=== PATIENT | female | born 1995 | race Caucasian/White ===

== ENCOUNTER 2017-01-14 18:09 | Inpatient (IN) | payer OTHER ==
[~2017-01-14] VITALS: Ht 167.6 cm; Wt 80.4 kg
[~2017-01-14 18:09] MED LIST: ARIP10TA14 PO; BENZ1TAB10 PO; BUPR100SR PO; CLON.5 PO; METH20TA PO; QUET100T PO; SERT50TA12 PO; [UNRECOGNIZED DRUG - CODE] PO
[2017-01-14] MEDS ORDERED: QUET200T PO (19:37)
[2017-01-14] MEDS ORDERED: QUET300T2 PO (19:37)
[2017-01-14] MEDS ORDERED: ATEN25 PO (19:37)
[2017-01-14] MEDS ORDERED: CHLO100T24 PO (19:37)
[2017-01-14] MEDS ORDERED: LITH600 PO (19:37)
[2017-01-14] MEDS ORDERED: LITH300C3 PO (19:37)
[2017-01-14 19:39] VITALS: BP 108/84
[2017-01-14] MEDS ORDERED: PNEUMOCOCCAL VACCINE POLYVALENT 0.5 ML VIAL [PPSV23] IM ONE (20:45)
[2017-01-14] MEDS ORDERED: INFLUENZA VIRUS VACCINE QVS 2016-17 (3YR+)/PF 60 MCG/0.5 ML SYRINGE IM ONE (20:45)
[2017-01-14 21:41] VITALS: BP 129/79
[2017-01-15 00:24] VITALS: BP 132/85
[2017-01-15] MEDS ORDERED: ACETAMINOPHEN 325 MG TABLET PO PRN (06:00)
[2017-01-15 08:30] VITALS: BP 138/88
[2017-01-15 08:39] LABS: BASOPHILS % (AUTO) 0.2 % (0.0-2.0); EOSINOPHILS % (AUTO) 1.5 % (1.0-6.0); HEMOGLOBIN 13.7 g/dL (12.0-16.0); LYMPHOCYTES # (AUTO) 3.6 K/uL (1.0-4.8); LYMPHOCYTES % (AUTO) 20.4 % (22.0-44.0); MEAN CORPUSCULAR HEMOGLOBIN 27.9 pg (26.0-34.0); MEAN CORPUSCULAR HGB CONC 32.6 G/dL (31.0-37.0); MEAN CORPUSCULAR VOLUME 86 fL (80-100); MONOCYTES # (AUTO) 0.9 K/uL (0.1-1.0); MONOCYTES % (AUTO) 4.9 % (2.0-9.0); NEUTROPHILS # (AUTO) 12.9 K/uL (1.8-7.7); PLATELET COUNT (AUTO) 381 K/uL (150-450); RED CELL DISTRIBUTION WIDTH 14.1 % (11.5-14.5); WHITE BLOOD COUNT (AUTO) 17.7 K/uL (4.5-11.0)
[2017-01-15] MEDS: IBUPROFEN 400 MG TABLET PO PRN (08:54)
[2017-01-15 09:04] LABS: LITHIUM 0.24 mmol/L (0.60-1.20)
[2017-01-15 09:22] LABS: ALANINE AMINOTRANSFERASE 64 U/L (12-78); ALBUMIN 4.2 g/dL (3.4-5.0); ANION GAP 12 mmol/L (8-16); ASPARTATE AMINOTRANSFERASE 25 U/L (15-37); BILIRUBIN,TOTAL 0.7 mg/dL (0.1-1.0); CALCIUM, TOTAL 9.2 mg/dL (8.8-10.5); CARBON DIOXIDE 25 mmol/L (22-29); CHLORIDE 103 mmol/L (98-107); CHOL/HDL RATIO 2.4 (3.9-5.7); CREATININE 1.12 mg/dL (0.60-1.30); GLOMERULAR FILTR. RATE CALC > 60 mL/min (>60); POTASSIUM 3.6 mmol/L (3.5-5.1); SODIUM SERUM 140 mmol/L (136-145); TOTAL PROTEIN, SERUM 7.6 g/dL (6.4-8.2); UREA NITROGEN, BLOOD 12 mg/dL (7-18)
[2017-01-15] MEDS: NICOTINE 21 MG/24 HOUR PATCH TD SCH (09:39)
[2017-01-15] MEDS ORDERED: ONDANSETRON HCL 4 MG TABLET PO PRN (10:00)
[2017-01-15] MEDS: LORazepam 2 MG TABLET PO PRN ×2 (12:03→20:35)
[2017-01-15] MEDS: ATENOLOL 25 MG TABLET PO SCH ×2 (14:11→17:11)
[2017-01-15 16:32] VITALS: BP 124/90
[2017-01-15] MEDS: OLANZapine 5 MG TABLET PO SCH (21:11)
[2017-01-15] MEDS: ZOLPIDEM TARTRATE 10 MG TABLET PO PRN (22:48)
[2017-01-15 22:49] VITALS: BP 114/92
[2017-01-16 06:00] VITALS: BP 112/72
[2017-01-16 08:15] VITALS: BP 123/62
[2017-01-16] MEDS: NICOTINE 21 MG/24 HOUR PATCH TD SCH ×2 (09:40→10:17)
[2017-01-16] MEDS: ATENOLOL 25 MG TABLET PO SCH ×2 (10:17→17:00)
[2017-01-16] MEDS: FLUoxetine HCL 20 MG CAPSULE PO SCH (10:17)
[2017-01-16] MEDS: LORazepam 2 MG TABLET PO PRN (10:18)
[2017-01-16 10:32] LABS: GLUCOSE, URINE (UA) NEGATIVE (NEGATIVE); KETONES,URINE NEGATIVE (NEGATIVE); LEUKOCYTE ESTERASE ,URINE NEGATIVE (NEGATIVE); OCCULT BLOOD,URINE NEGATIVE (NEGATIVE); PROTEIN,URINE TRACE (NEGATIVE)
[2017-01-16 10:41] LABS: ADD UA MICROSCOPIC NO; APPEARANCE,URINE HAZY (CLEAR)
[2017-01-16] MEDS ORDERED: MAG HYDROX/AL HYDROX/SIMETH 30 ML SUSP UDCUP PO PRN (14:30)
[2017-01-16 16:06] VITALS: BP 106/73
[2017-01-16] MEDS: OLANZapine 5 MG TABLET PO SCH (20:23)
[2017-01-16] MEDS: ZOLPIDEM TARTRATE 10 MG TABLET PO PRN (21:02)
[2017-01-17 00:05] VITALS: BP 105/71
[2017-01-17 08:21] VITALS: BP 115/72
[2017-01-17] MEDS: NICOTINE 21 MG/24 HOUR PATCH TD SCH (09:00)
[2017-01-17] MEDS: ATENOLOL 25 MG TABLET PO SCH ×2 (09:25→16:30)
[2017-01-17] MEDS: FLUoxetine HCL 20 MG CAPSULE PO SCH (09:25)
[2017-01-17] MEDS: IBUPROFEN 400 MG TABLET PO PRN (12:56)
[2017-01-17 16:15] VITALS: BP 115/67
[2017-01-17] MEDS: OLANZapine 5 MG TABLET PO SCH (20:42)
[2017-01-17] MEDS: ZOLPIDEM TARTRATE 10 MG TABLET PO PRN (22:03)
[2017-01-18 01:42] VITALS: BP 117/71
[2017-01-18 07:55] LABS: BASOPHILS # (AUTO) 0.05 K/uL (0.00-0.20); BASOPHILS % (AUTO) 0.4 % (0.0-2.0); EOSINOPHILS % (AUTO) 2.86 % (1.0-6.0); HEMATOCRIT 38.6 % (36-46); HEMOGLOBIN 12.8 g/dL (12.0-16.0); LYMPHOCYTES # (AUTO) 3.4 K/uL (1.0-4.8); LYMPHOCYTES % (AUTO) 23.8 % (22.0-44.0); MEAN CORPUSCULAR HEMOGLOBIN 28.2 pg (26.0-34.0); MEAN CORPUSCULAR HGB CONC 33.2 G/dL (31.0-37.0); MEAN CORPUSCULAR VOLUME 85 fL (80-100); MONOCYTES # (AUTO) 0.8 K/uL (0.1-1.0); MONOCYTES % (AUTO) 5.5 % (2.0-9.0); NEUTROPHILS # (AUTO) 9.6 K/uL (1.8-7.7); NEUTROPHILS % (AUTO) 67.5 % (40.0-70.0); PLATELET COUNT (AUTO) 362 K/uL (150-450); RED BLOOD CELL COUNT(AUTO) 4.54 MIL/uL (4.00-5.20); RED CELL DISTRIBUTION WIDTH 14.1 % (11.5-14.5); WHITE BLOOD COUNT (AUTO) 14.2 K/uL (4.5-11.0)
[2017-01-18 08:10] LABS: ANION GAP 9 mmol/L (8-16); CALCIUM, TOTAL 8.6 mg/dL (8.8-10.5); CARBON DIOXIDE 28 mmol/L (22-29); CHLORIDE 107 mmol/L (98-107); CREATININE 0.97 mg/dL (0.60-1.30); GLOMERULAR FILTR. RATE CALC > 60 mL/min (>60); POTASSIUM 3.7 mmol/L (3.5-5.1); SODIUM SERUM 144 mmol/L (136-145); UREA NITROGEN, BLOOD 12 mg/dL (7-18)
[2017-01-18] MEDS: IBUPROFEN 400 MG TABLET PO PRN (08:26)
[2017-01-18 08:27] VITALS: BP 127/76
[2017-01-18] MEDS: ATENOLOL 25 MG TABLET PO SCH ×2 (08:44→16:44)
[2017-01-18] MEDS: NICOTINE 21 MG/24 HOUR PATCH TD SCH (08:44)
[2017-01-18] MEDS: FLUoxetine HCL 20 MG CAPSULE PO SCH (08:44)
[2017-01-18 16:12] VITALS: BP 120/69
[2017-01-18] MEDS: LORazepam 2 MG TABLET PO PRN (20:10)
[2017-01-18] MEDS: OLANZapine 5 MG TABLET PO SCH (20:44)
[2017-01-19 03:26] VITALS: BP 106/60
[2017-01-19 08:20] VITALS: BP 115/83
[2017-01-19] MEDS: NICOTINE 21 MG/24 HOUR PATCH TD SCH (08:36)
[2017-01-19] MEDS: FLUoxetine HCL 20 MG CAPSULE PO SCH (08:36)
[2017-01-19] MEDS: ATENOLOL 25 MG TABLET PO SCH ×2 (08:36→16:58)
[2017-01-19 16:03] VITALS: BP 112/60
[2017-01-19] MEDS: IBUPROFEN 400 MG TABLET PO PRN (16:37)
[2017-01-19] MEDS: LORazepam 2 MG TABLET PO PRN (19:31)
[2017-01-19] MEDS: OLANZapine 5 MG TABLET PO SCH (20:37)
[2017-01-20 00:06] VITALS: BP 101/61
[2017-01-20 09:00] VITALS: BP 124/69
[2017-01-20] MEDS: FLUoxetine HCL 20 MG CAPSULE PO SCH (09:12)
[2017-01-20] MEDS: ATENOLOL 25 MG TABLET PO SCH ×2 (09:12→16:57)
[2017-01-20] MEDS: NICOTINE 21 MG/24 HOUR PATCH TD SCH (09:12)
[2017-01-20 14:26] VITALS: BP 112/62
[2017-01-20] MEDS: IBUPROFEN 400 MG TABLET PO PRN (14:26)
[2017-01-20 16:04] VITALS: BP 105/59
[2017-01-20 16:57] VITALS: BP 120/66
[2017-01-20] MEDS: OLANZapine 5 MG TABLET PO SCH (20:32)
[2017-01-20] MEDS: ZOLPIDEM TARTRATE 10 MG TABLET PO PRN (21:20)
[2017-01-21 01:05] VITALS: BP 92/54
[2017-01-21 01:31] VITALS: BP 92/55
[2017-01-21 08:30] VITALS: BP 127/55
[2017-01-21 09:25] VITALS: BP 118/75
[2017-01-21] MEDS: LORazepam 2 MG TABLET PO PRN (09:30)
[2017-01-21] MEDS: FLUoxetine HCL 20 MG CAPSULE PO SCH (09:30)
[2017-01-21] MEDS: NICOTINE 21 MG/24 HOUR PATCH TD SCH (09:30)
[2017-01-21] MEDS: ATENOLOL 25 MG TABLET PO SCH ×2 (09:30→16:42)
[2017-01-21 16:25] VITALS: BP 125/69
[2017-01-21] MEDS: OLANZapine 5 MG TABLET PO SCH (20:42)
[2017-01-22 05:34] VITALS: BP 105/77
[2017-01-22 08:00] VITALS: BP 110/71
[2017-01-22 08:08] LABS: BASOPHILS # (AUTO) 0.05 K/uL (0.00-0.20); BASOPHILS % (AUTO) 0.4 % (0.0-2.0); EOSINOPHILS # (AUTO) 0.28 K/uL (0.00-0.70); HEMATOCRIT 42.4 % (36-46); HEMOGLOBIN 14.2 g/dL (12.0-16.0); LYMPHOCYTES # (AUTO) 4.8 K/uL (1.0-4.8); LYMPHOCYTES % (AUTO) 32.7 % (22.0-44.0); MEAN CORPUSCULAR HEMOGLOBIN 28.3 pg (26.0-34.0); MEAN CORPUSCULAR HGB CONC 33.4 G/dL (31.0-37.0); MEAN CORPUSCULAR VOLUME 85 fL (80-100); MONOCYTES # (AUTO) 1.1 K/uL (0.1-1.0); MONOCYTES % (AUTO) 7.5 % (2.0-9.0); NEUTROPHILS # (AUTO) 8.5 K/uL (1.8-7.7); NEUTROPHILS % (AUTO) 57.5 % (40.0-70.0); PLATELET COUNT (AUTO) 371 K/uL (150-450); RED BLOOD CELL COUNT(AUTO) 5.01 MIL/uL (4.00-5.20); RED CELL DISTRIBUTION WIDTH 14.9 % (11.5-14.5); WHITE BLOOD COUNT (AUTO) 14.7 K/uL (4.5-11.0)
[2017-01-22] MEDS ORDERED: FLUO-191 PO (08:15)
[2017-01-22] MEDS ORDERED: OLAN5TAB2 PO (08:30)
[2017-01-22] MEDS: NICOTINE 21 MG/24 HOUR PATCH TD SCH (09:00)
[2017-01-22] MEDS: FLUoxetine HCL 20 MG CAPSULE PO SCH (09:40)
[2017-01-22] MEDS: ATENOLOL 25 MG TABLET PO SCH (09:40)
== END 2017-01-22 09:50 | disposition home or self-care (01) | DRG 885 ==
LOC: B2S 21:11 → EDSTATUS 21:12 → B2X 01-15 15:53 → B2S 01-21 10:24
PROVIDERS: ADMIT Psychiatry & Neurology Psychiatry; ATTEND Psychiatry & Neurology Child & Adolescent Psychiatry
DX: F25.0 Schizoaffective disorder, bipolar type (principal); R45.851 Suicidal ideations; D72.829 Elevated white blood cell count, unspecified; F12.10 Cannabis abuse, uncomplicated; I10 Essential (primary) hypertension; Z62.819 Personal history of unspecified abuse in childhood; F60.3 Borderline personality disorder; R00.0 Tachycardia, unspecified; F19.10 Other psychoactive substance abuse, uncomplicated; Z71.51 Drug abuse counseling and surveillance of drug abuser; Z87.891 Personal history of nicotine dependence; Z91.5 Personal history of self-harm; Z79.899 Other long term (current) drug therapy; Z91.09 Other allergy status, other than to drugs and biological substances; Z91.14 Patient's other noncompliance with medication regimen; Z28.21 Immunization not carried out because of patient refusal; Z81.8 Family history of other mental and behavioral disorders
CPT/HCPCS: 80307; 87081; 90471; Q0162

== ENCOUNTER 2018-06-01 23:17 | Emergency (ER) | payer MEDICAID, OTHER ==
[~2018-06-01] VITALS: Ht 167.6 cm; Wt 84.1 kg
[~2018-06-01 23:17] MED LIST changes: -ARIP10TA14 PO; -BENZ1TAB10 PO; -BUPR100SR PO; -CLON.5 PO; +FLUO-191 PO; -METH20TA PO; +OLAN5TAB2 PO; -QUET100T PO; -SERT50TA12 PO; -[UNRECOGNIZED DRUG - CODE] PO
[2018-06-02 01:55] LABS: BASOPHILS % (AUTO) 0.2 % (0.0-2.0); EOSINOPHILS % (AUTO) 0.3 % (1.0-6.0); HEMATOCRIT 40.5 % (36-46); LYMPHOCYTES # (AUTO) 3.4 K/uL (1.0-4.8); LYMPHOCYTES % (AUTO) 25.9 % (22.0-44.0); MEAN CORPUSCULAR HEMOGLOBIN 28.5 pg (26.0-34.0); MEAN CORPUSCULAR HGB CONC 34.7 G/dL (31.0-37.0); MEAN CORPUSCULAR VOLUME 82 fL (80-100); MONOCYTES # (AUTO) 0.7 K/uL (0.1-1.0); MONOCYTES % (AUTO) 5.6 % (2.0-9.0); NEUTROPHILS # (AUTO) 8.8 K/uL (1.8-7.7); PLATELET COUNT (AUTO) 281 K/uL (150-450); RED BLOOD CELL COUNT(AUTO) 4.93 MIL/uL (4.00-5.20); RED CELL DISTRIBUTION WIDTH 13.4 % (11.5-14.5)
[2018-06-02 02:00] LABS: ANION GAP 6 mmol/L (8-16); CALCIUM, TOTAL 8.8 mg/dL (8.8-10.5); CARBON DIOXIDE 28 mmol/L (22-29); CHLORIDE 104 mmol/L (98-107); CREATININE 0.97 mg/dL (0.60-1.30); GLOMERULAR FILTR. RATE CALC > 60 mL/min (>60); GLUCOSE,RANDOM 89 mg/dL (70-110); POTASSIUM 3.9 mmol/L (3.5-5.1); SODIUM SERUM 138 mmol/L (136-145); UREA NITROGEN, BLOOD 10 mg/dL (7-18)
[2018-06-02 02:07] LABS: ALANINE AMINOTRANSFERASE 29 U/L (12-78); ALKALINE PHOSPHATASE 70 U/L (46-116); ASPARTATE AMINOTRANSFERASE 17 U/L (15-37); BILIRUBIN,TOTAL 0.3 mg/dL (0.1-1.0); TOTAL PROTEIN, SERUM 7.2 g/dL (6.4-8.2)
[2018-06-02 02:54] LABS: AMPHET/METH SCREEN,URINE NEGATIVE (NEGATIVE); BARBITURATE SCREEN, URINE NEGATIVE (NEGATIVE); BENZODIAZEPINES SCREEN,URINE NEGATIVE (NEGATIVE); CANNABINOID SCREEN,URINE NEGATIVE (NEGATIVE); COCAINE SCREEN,URINE NEGATIVE (NEGATIVE); METHADONE SCREEN, URINE NEGATIVE (NEGATIVE); OPIATE SCREEN,URINE NEGATIVE (NEGATIVE)
[2018-06-02 02:56] LABS: PHENCYCLIDINE SCREEN,URINE NEGATIVE (NEGATIVE)
[2018-06-02 05:04] VITALS: BP 116/63
== END 2018-06-02 05:18 | disposition home or self-care (01) ==
LOC: EMS 23:18
DX: F31.9 Bipolar disorder, unspecified (principal); F17.210 Nicotine dependence, cigarettes, uncomplicated; F20.9 Schizophrenia, unspecified
CPT/HCPCS: 36415; 80053; 80307; 84703; 85025; 99285; G0480

== ENCOUNTER 2018-09-15 05:16 | Emergency (ER) | payer OTHER ==
[~2018-09-15] VITALS: Ht 167.6 cm; Wt 80.9 kg
[2018-09-15 05:17] VITALS: BP 133/70
== END 2018-09-15 06:10 | disposition left against medical advice (07) ==
LOC: EMS 05:17
DX: R45.851 Suicidal ideations (principal); Z53.21 Procedure and treatment not carried out due to patient leaving prior to being seen by health care provider

== ENCOUNTER 2018-10-18 21:41 | Emergency (ER) | payer MEDICAID | END 2018-10-18 21:50 | disposition left against medical advice (07) | LOC: EMS 21:43 | DX: Z00.00 Encounter for general adult medical examination without abnormal findings (principal); Z53.21 Procedure and treatment not carried out due to patient leaving prior to being seen by health care provider ==